=== PATIENT | female | born 1955 | race Caucasian/White ===

== ENCOUNTER 2018-03-15 10:57 | Emergency (ER) | payer BC, OTHER ==
[2018-03-15] MEDS ORDERED: SODIUM CHLORIDE 0.9% 500 ML INFUS.BAG IV ONE (11:12)
--- NOTE | 2018-03-15 11:20 | PDOC ---
History of Present Illness - General Stated Complaint: Syncope/Near Syncope Time Seen by Provider: 03/15/18 11:03 History Source: Patient - History of Present Illness Initial Comments: The patient is a 62F with a history of HTN and T2DM who presents s/p syncopal fall. +LOC. She reports that she was walking to her bus stop, had been outside for about an hour, then suddenly began to feel lightheaded. She went into a store to cool down and then awoke on the floor. She does not recall falling nor does she know how long she was unconscious for. She reports that currently she does not feel dizzy and her vision is normal. She endorses pain on the back of her head where she thinks she may have hit it when falling. She denies a history of syncope, seizure, or IA/CHF. She denies fevers, chills, sick contacts, recent travel, chest pain, SOB, or abdominal pain. She denies N/V /D. 03/15/18 11:14 Past History - Past Medical History Allergies/Adverse Reactions: Allergies Allergy/AdvReac Type Severity Reaction Status Date / Time No Known Allergies Allergy Verified 02/12/12 13:10 Home Medications: Ambulatory Orders Metformin HCl 500 mg PO BID 02/12/12 Simvastatin 80 mg PO DAILY 02/12/12 Amlodipine Besylate 10 mg PO DAILY 03/15/18 Fenofibrate,Micronized [Fenofibrate] 134 mg PO DAILY 03/15/18 Lisinopril [Prinivil -] 40 mg PO DAILY 03/15/18 Metoprolol Succinate 100 mg PO DAILY 03/15/18 Oxybutynin Chloride 5 mg PO DAILY 03/15/18 Anemia: No Asthma: No Cancer: No Cardiac Disorders: No CVA: No COPD: No CHF: No Dementia: No Diabetes: Yes (2011) GI Disorders: No (OCCASIONAL HEARTBURN) Disorders: No HTN: Yes Hypercholesterolemia: Yes Liver Disease: No Seizures: No Thyroid Disease: No - Surgical History Abdominal Surgery: No Appendectomy: No Cardiac Surgery: No Cholecystectomy: No Lung Surgery: No Neurologic Surgery: No Orthopedic Surgery: Yes (BILATERAL KNEE ARTHROSCOPIES ) - Suicide/Smoking/Psychosocial Hx Smoking History: Former smoker Have you smoked in the past 12 months: No If you are a former smoker, when did you quit?: Hx Alcohol Use: No Drug/Substance Use Hx: No Substance Use Type: None Hx Substance Use Treatment: No Review of Systems - Review of Systems Able to Perform ROS?: Yes Comments:: 03/15/18 11:59 GENERAL/CONSTITUTIONAL: No fever or chills. No weakness. HEAD, EYES, EARS, NOSE AND THROAT: No change in vision. No ear pain or discharge. No sore throat. CARDIOVASCULAR: No chest pain or shortness of breath RESPIRATORY: No cough, wheezing, or hemoptysis. GASTROINTESTINAL: No nausea, vomiting, diarrhea or constipation. GENITOURINARY: No dysuria, frequency, or change in urination. MUSCULOSKELETAL: No joint or muscle swelling or pain. No neck or back pain. SKIN: No rash NEUROLOGIC: +occipital LEON. Denies vertigo or change in strength/sensation. ENDOCRINE: No increased thirst. No abnormal weight change HEMATOLOGIC/LYMPHATIC: No anemia, easy bleeding, or history of blood clots. ALLERGIC/IMMUNOLOGIC: No hives or skin allergy. Is the patient limited Turkish proficient: No *Physical Exam - Physical Exam Comments: GENERAL: Awake, alert, and fully oriented, in no acute distress HEAD: Mild occipital TTP, no laceration or abrasion. EYES: PERRLA, EOMI, sclera anicteric, conjunctiva clear ENT: Auricles normal inspection, hearing grossly normal, nares patent, oropharynx clear without exudates. Moist mucosa NECK: Normal ROM, supple, no lymphadenopathy LUNGS: No distress, speaks full sentences, clear to auscultation bilaterally HEART: Regular rate and rhythm, normal S1 and S2, no murmurs appreciated, peripheral pulses normal and equal bilaterally. ABDOMEN: Soft, nontender, normoactive bowel sounds. No guarding, no rebound. EXTREMITIES : R wrist cast in place s/p carpel tunnel surgery 1 week ago. Otherwise normal range of motion, no edema. No clubbing or cyanosis. NEUROLOGICAL: Cranial nerves II through XII grossly intact. Normal speech, normal gait, no focal sensorimotor deficits SKIN: Warm, Dry, normal turgor, no rashes or lesions noted 03/15/18 12:00 ED Treatment Course - LABORATORY CBC & Chemistry Diagram: 03/15/18 11:40 03/15/18 11:40 - RADIOLOGY Radiology Studies Ordered: Category Date Time Status CHEST X-RAY PORTABLE* [RAD] Stat Radiology 03/15/18 11:12 Ordered Medical Decision Making - Medical Decision Making The patient is a 62F with a history of HTN and T2DM who presents s/p syncopal fall x1 with mild occipital LEON 2/2 fall. Ddx: vasovagal syncope, arrhythmia, IA; less likely PE; considered but not likely sepsis/infectious ED Course: CMP, CBC, Trop I, UA, ECG, CT Head Will evaluate orthostatic vitals 1L NS for relative hypotension/recsusitation 90s/60s Tylenol 975mg PO once for LEON Orthostatics Laying: BP 110/75 HR: 97 Sitting: BP 104/75 HR: 71 Standing: BP 95/75 HR: 78 -Mild orthostatic hypotension prior to fluid bolus ECG with normal sinus rhythm; without evidence of acute infarction or arrhythmia 03/15/18 11:50 CT Head without evidence of acute bleed CXR without evidence of PNX, cardiomegaly, PNA, or other acute pathology Repeat BP 116/69 HR 68 Syncope likely vasovagal in etiology Pt's creatinine 1.2 with history of T2DM on Metformin. No previous labs available for comparison and patient is unsure of her baseline. Will give patient lab data to bring with her to discuss with her PCP at her follow up visit. Patient also found to have asymptomatic protinuria Patient's LEON improved s/p Tylenol. She would like to go home, and is comfortable doing so. Her step-son lives near her and is able to check on her. She was given return precautions for which she verbalized understanding. Further , she should follow up with her PCP on Sunday, Dr. Nuñez Dispo: Home with PCP follow up Sunday03/15/18 13:12 *DC/Admit/Observation/Transfer Diagnosis at time of Disposition: Syncope and collapse - Discharge Dispostion Disposition: HOME Condition at time of disposition: Improved Decision to Admit order: No - Referrals Referrals: Shazia Hernandez [Non Staff, Medical] - - Patient Instructions Printed Discharge Instructions: DI for Syncope in Adults (Fainting) Additional Instructions: You were seen today in the Emergency Department for a syncopal fall. Please refer to the handouts provided at discharge. Additionally, you were found to have a mildly elevated creatinine at 1.2. Please follow up with your primary care provider in 1-3 days and let them know about your visit here as well as this lab value. Return to the Emergency Department if you begin to experience fevers, headache, vomiting, lethargy, any numbness or tingling, any worsening symptoms, or any new concerning symptoms. - Post Discharge Activity
[2018-03-15 11:23] VITALS: TEMP 98.4; BMI 25.7
--- NOTE | 2018-03-15 11:24 | PDOC ---
Attending Attestation - HPI HPI: 03/15/18 12:24 The patient is a 62 year old female, with a significant PMH of HTN, hypercholesterolemia, and Non insulin dependent diabetes, who presents to the emergency department from a syncopal fall that occurred this morning. Patient state she was waiting for the bus today when she suddenly began to feel lightheaded. She went in to a store to cool down and woke up on the floor. The patient reports she has no recollection of the fall and how long she was unconscious for. The patient reports she has a headache now located to the back but denies any blurry vision, lightheadedness and dizziness. Patient denies chest pain and shortness of breath. Denies fever, chills, nausea, vomit, diarrhea and constipation. Allergies: NKDA Past surgical history: Bilateral knee arthroscopies 1979 Social history: Former smoker but denies recreational drugs and tobacco use PCP: None reported - Physicial Exam PE: 03/15/18 12:28 Vitals: Triage vital signs reviewed General Appearance: No acute distress, well nourished, well developed Head: +Hematoma to the back of the head Chest Wall: Nontender Cardiac: Regular rate and rhythm, no murmurs, no rubs, no gallops Lungs: Clear to auscultation bilateral, good air movement bilaterally Abdomen: Soft, nondistended, normal bowel sounds, nontender to palpation Rectal: Exam deferred Extremities: +Right hand cast secondary to previous surgery. No cyanosis, clubbing, or edema Skin: Warm and dry, no rashes or lesions, no rash, no petechiae Neuro: AOX3; Cranial Nerves 2-12 grossly intact, Strength intact to all extremities, Sensation intact to all extremities. Psych: Normal mood, normal affect - Medical Decision Making 03/15/18 12:32 Documentation prepared by Kiran Galvez, acting as medical communication specialist for Michael Brody MD. <Kiran Galvez - Last Filed: 03/15/18 12:23> - Resident Resident Name: Papo Pederson - ED Attending Attestation I have performed the following: I have examined & evaluated the patient, The case was reviewed & discussed with the resident, I agree w/resident's findings & plan, Exceptions are as noted - Medical Decision Making History examination consistent with vasovagal syncope. EKG with no evidence of arrhythmia labs troponin chest x-ray are all within normal limits status post IV fluids patient feels much better head CT within normal limits as well Patient sent along we'll check on her this evening. Findings, the need for follow-up and strict return instructions discussed patient. <Michael Brody - Last Filed: 03/15/18 16:22> Discharge Disposition - Discharge Dispostion Last Admission D/C Date: 03/13/97 <Kiarn Galvez - Last Filed: 03/15/18 12:23> <Michael Brody - Last Filed: 03/15/18 16:22> - Diagnosis Syncope and collapse - Discharge Dispostion Disposition: HOME Condition at time of disposition: Improved - Referrals Referrals: Shazia Hernandez [Primary Care Provider] - - Patient Instructions Printed Discharge Instructions: DI for Syncope in Adults (Fainting) Additional Instructions: You were seen today in the Emergency Department for a syncopal fall. Please refer to the handouts provided at discharge. Additionally, you were found to have a mildly elevated creatinine at 1.2. Please follow up with your primary care provider in 1-3 days and let them know about your visit here as well as this lab value. Return to the Emergency Department if you begin to experience fevers, headache, vomiting, lethargy, any numbness or tingling, any worsening symptoms, or any new concerning symptoms. Heart Score/ECG Review - ECG Impressions Comment:: 03/15/18 16:22 EKG performed at 1132. Demonstrates sinus rhythm no ST elevations or T-wave inversions no evidence of blood WPW, Brugada, prolonged QT <RonnMichael almanzar - Last Filed: 03/15/18 16:22>
[2018-03-15] MEDS ORDERED: ACETAMINOPHEN 325 MG TABLET (FP) PO ONE (11:49)
[2018-03-15] MEDS ORDERED: ACETAMINOPHEN INJECTION 100 ML IVPB ONE (11:51)
[2018-03-15 11:52] LABS: HEMATOCRIT 37.1 % (32.4-45.2); HEMOGLOBIN 12.3 GM/dL (10.7-15.3); MCH 28.7 pg (25.7-33.7); MCHC 33.2 g/dl (32.0-36.0); MEAN CELL VOLUME 86.4 fl (80-96); MEAN PLT VOLUME 9.6 fl (7.5-11.1); PLATELET COUNT 329 K/MM3 (134-434); RDW 13.7 % (11.6-15.6); WHITE BLOOD COUNT 12.1 K/mm3 (4.0-10.0)
[2018-03-15 12:05] LABS: URINE APPEARANCE SLCLOUDY; URINE BILIRUBIN NEGATIVE (<2.0 mg/dL); URINE COLOR AMBER; URINE GLUCOSE (UA) 1+ (NEGATIVE); URINE KETONE TRACE (NEGATIVE); URINE LEUK ESTERASE TRACE (NEGATIVE); URINE NITRITE NEGATIVE (NEGATIVE); URINE UROBILINOGEN NEGATIVE mg/dL (0.2-1.0)
[2018-03-15 12:07] LABS: URINE PROTEIN 3+ (NEGATIVE)
[2018-03-15 12:10] LABS: CALCIUM OXALATE CRYSTALS RARE /hpf (NONE SEEN); EPI CELLS RARE /HPF (FEW); URINE HYALINE CAST 304 /lpf; URINE MUCUS RARE
[2018-03-15 12:16] LABS: ALBUMIN 4.4 g/dl (3.4-5.0); ANION GAP 11 (8-16); BILIRUBIN,TOTAL 0.5 mg/dL (0.2-1.0); BLOOD UREA NITROGEN 15 mg/dL (7-18); CALCIUM 9.7 mg/dL (8.5-10.1); CHLORIDE 104 mmol/L (98-107); CO2 27 mmol/L (21-32); CREATININE 1.2 mg/dL (0.55-1.02); GLUCOSE,RANDOM 143 mg/dL (74-106); POTASSIUM 4.4 mmol/L (3.5-5.1); SGOT/AST 27 U/L (15-37); SGPT/ALT 34 U/L (12-78); SODIUM 142 mmol/L (136-145); TOT PROT 7.5 g/dl (6.4-8.2)
[2018-03-15 12:18] LABS: ALK PHOS 55 U/L (45-117)
[2018-03-15 13:11] VITALS: BP 116/69; PULSE 68
--- NOTE | 2018-03-15 14:13 | EKG ---
Test Reason : Blood Pressure : / mmHG Vent. Rate : 069 BPM Atrial Rate : 069 BPM P-R Int : 174 ms QRS Dur : 088 ms QT Int : 418 ms P-R-T Axes : 032 013 032 degrees QTc Int : 447 ms NORMAL SINUS RHYTHM NORMAL ECG WHEN COMPARED WITH ECG OF 09-JUL-2001 00:14, NO SIGNIFICANT CHANGE WAS FOUND Confirmed by KEO HARRIS MD ([id number]) on 03/15/2018 2:13:04 PM Referred By: Confirmed By:KEO HARRIS MD
== END 2018-03-15 13:30 | disposition home or self-care (01) ==
LOC: JER 10:57
PROC: 3E0337Z Introduction of Electrolytic and Water Balance Substance into Peripheral Vein, Percutaneous Approach (ICD-10-PCS; principal; 2018-03-15)
DX: R55 Syncope and collapse (principal); I10 Essential (primary) hypertension; E11.9 Type 2 diabetes mellitus without complications
CPT/HCPCS: 36415; 70450-TC; 71045-TC-FY; 80053; 81003; 81015; 82550; 84484; 85027; 93005; 93010; 99285-25